=== PATIENT | male | born 1965 | race Two or more races ===

== ENCOUNTER 2025-08-28 17:21 | Inpatient (IN) | payer MEDICARE, OTHER ==
[~2025-08-28] VITALS: Ht 177.8 cm; Wt 77.6 kg
[2025-08-28 18:13] LABS: PLATELET COUNT (AUTO) 358 K/uL (150-450); RED BLOOD CELL COUNT(AUTO) 3.50 MIL/uL (4.5-6.0); RED CELL DISTRIBUTION WIDTH 14.6 % (11.5-15.0); WHITE BLOOD COUNT (AUTO) 7.4 K/uL (4.3-11.0)
[2025-08-28 18:24] LABS: CALCIUM, SERUM 8.8 mg/dL (8.5-10.1); CREATININE 0.6 mg/dL (0.6-1.3); SODIUM SERUM 137 mmol/L (136-145); UREA NITROGEN, BLOOD 28 mg/dL (7-18)
[2025-08-28 18:26] LABS: INR 1.02 (0.91-1.10)
[2025-08-28 18:30] LABS: ASPARTATE AMINOTRANSFERASE 12 U/L (15-37); TOTAL PROTEIN, SERUM 7.5 g/dL (6.4-8.2)
[2025-08-28 18:32] LABS: LACTIC ACID 0.9 mmol/L (0.4-2.0)
[2025-08-28] MEDS ORDERED: IOHEXOL-300 100 ML VIAL IV ONE (18:53)
[2025-08-28] MEDS ORDERED: IV NS 0.9% 250 ML IV ONE (18:53)
[2025-08-28 19:36] LABS: APPEARANCE,URINE CLEAR (CLEAR); BLOOD, URINE Negative Ery/uL (NEGATIVE); LEUKOCYTE ESTERASE ,URINE Negative (NEGATIVE); NITRITE, URINE NEGATIVE (NEGATIVE); UGLUCOSE 500 MG/DL mg/dL (NEGATIVE)
[2025-08-28 19:37] LABS: ADD URINE CULTURE NO; SQUAMOUS EPITHELIAL CELL,UR None Seen /HPF (None Seen)
[2025-08-28] MEDS ORDERED: CEFEPIME 1 GM VIAL ONE (21:08)
[2025-08-28] MEDS: CEFEPIME 1 GM in IV D5W 50 ML IV ONE (21:10)
[2025-08-28] MEDS ORDERED: MAGNESIUM HYDROXIDE 30 ML UDC PO PRN (21:30)
[2025-08-28] MEDS ORDERED: MAG HYDROX/AL HYDROX/SIMETH 30 ML UDC PO PRN (21:30)
[2025-08-28] MEDS ORDERED: DOSING PER PHARMACY-VANCOMYCIN IV XX PRN (21:30)
[2025-08-28] MEDS ORDERED: Z GUARD REMEDY 4 OZ OINT TP PRN (21:30)
[2025-08-28] MEDS ORDERED: ACETAMINOPHEN 325 MG TABLET PO PRN (21:30)
[2025-08-28] MEDS ORDERED: ONDANSETRON HCL/PF 4 MG/2 ML VIAL IVP PRN (21:30)
[2025-08-28] MEDS ORDERED: VANCOMYCIN 1 GM /D5W 250 ML PB IV ONE (21:42)
[2025-08-28] MEDS: VANCOMYCIN 1 GM in IV D5W 250 ML IV ONE (21:50)
[2025-08-28] MEDS ORDERED: POLY17PO4 GT (21:52)
[2025-08-28] MEDS ORDERED: METO5TAB87 GT (21:52)
[2025-08-28] MEDS ORDERED: QUET25TA GT (21:52)
[2025-08-28] MEDS ORDERED: METF-440 GT (21:52)
[2025-08-28] MEDS ORDERED: NICO-627 TP (21:52)
[2025-08-28] MEDS ORDERED: AMIN887L GT (21:52)
[2025-08-28] MEDS ORDERED: SENN-18 GT (21:52)
[2025-08-28] MEDS ORDERED: QUET50TA GT (21:52)
[2025-08-28] MEDS ORDERED: INSU100I26 SQ (21:52)
[2025-08-28] MEDS ORDERED: TRAZ-182 GT (21:52)
[2025-08-28] MEDS ORDERED: LISI2.5T2 GT (21:52)
[2025-08-28] MEDS ORDERED: DEXTROSE 50%-WATER 50 ML DISP.SYRIN IV PRN (22:30)
[2025-08-28] MEDS ORDERED: VANCOMYCIN 500 MG VIAL ONE (23:27)
[2025-08-28] MEDS: VANCOMYCIN 1 GM /D5W 250 ML PB IV ONE (23:41)
[2025-08-28] MEDS: IV D5/ 0.9% NACL 1,000 ML IV SCH (23:42)
[2025-08-28] MEDS: VANCOMYCIN 1.5 GM in IV D5W 500 ML IV ONE (23:43)
[2025-08-29] MEDS: BLOOD SUGAR DIAGNOSTIC 1 EACH STRIP IN SCH (00:04)
[2025-08-29] MEDS: INSULIN REGULAR, HUMAN 100 UNIT/ML 3 ML VIAL SQ PRN (00:04)
[2025-08-29 04:00] VITALS: BP 111/53; TEMP 97.9; O2SAT 98
[2025-08-29 08:00] VITALS: BP 112/50; TEMP 99.3; O2SAT 96
[2025-08-29] MEDS ORDERED: INSU100V42 SQ (08:29)
[2025-08-29] MEDS ORDERED: NICO-676 TD (08:29)
[2025-08-29] MEDS ORDERED: AMIN30LI2 GT (08:29)
[2025-08-29] MEDS ORDERED: GLUC1KIT IJ (08:29)
[2025-08-29] MEDS ORDERED: NUT.237L30 GT (08:29)
[2025-08-29] MEDS: VANCOMYCIN HCL 1.25 GM in IV D5W 250 ML IV SCH (08:46)
[2025-08-29] MEDS: PANTOPRAZOLE 40 MG VIAL IV SCH (08:54)
[2025-08-29] MEDS: CEFEPIME 1 GM in IV D5W 50 ML IV SCH (10:19)
[2025-08-29 11:09] LABS: PLATELET COUNT (AUTO) 326 K/uL (150-450); RED BLOOD CELL COUNT(AUTO) 3.17 MIL/uL (4.5-6.0); RED CELL DISTRIBUTION WIDTH 14.1 % (11.5-15.0); WHITE BLOOD COUNT (AUTO) 6.5 K/uL (4.3-11.0)
[2025-08-29 11:21] LABS: CALCIUM, SERUM 8.5 mg/dL (8.5-10.1); CREATININE 0.7 mg/dL (0.6-1.3); PHOSPHORUS 3.8 mg/dL (2.5-4.9); SODIUM SERUM 137.0 mmol/L (136-145); UREA NITROGEN, BLOOD 19.0 mg/dL (7-18)
[2025-08-29 16:00] VITALS: BP 121/61; TEMP 98.2; O2SAT 95
[2025-08-29 20:00] VITALS: BP 117/56; TEMP 98.4; O2SAT 93
[2025-08-30 08:00] VITALS: BP 121/53; TEMP 98.4; O2SAT 96
[2025-08-30 08:00] LABS: CALCIUM, SERUM 8.2 mg/dL (8.5-10.1); CREATININE 0.7 mg/dL (0.6-1.3); SODIUM SERUM 138.0 mmol/L (136-145); UREA NITROGEN, BLOOD 12.0 mg/dL (7-18)
[2025-08-30] MEDS: VANCOMYCIN HCL 1.25 GM in IV D5W 250 ML IV SCH (12:04)
[2025-08-30 16:00] VITALS: BP 128/67; TEMP 99.3; O2SAT 96
[2025-08-30 20:00] VITALS: BP 113/59; TEMP 99.3; O2SAT 97
[2025-08-31 06:58] LABS: PLATELET COUNT (AUTO) 326 K/uL (150-450); RED BLOOD CELL COUNT(AUTO) 3.19 MIL/uL (4.5-6.0); RED CELL DISTRIBUTION WIDTH 13.9 % (11.5-15.0); WHITE BLOOD COUNT (AUTO) 5.7 K/uL (4.3-11.0)
[2025-08-31 06:59] LABS: CALCIUM, SERUM 8.5 mg/dL (8.5-10.1); CREATININE 0.6 mg/dL (0.6-1.3); SODIUM SERUM 141.0 mmol/L (136-145); UREA NITROGEN, BLOOD 10.0 mg/dL (7-18)
[2025-08-31 08:00] VITALS: BP 156/54; TEMP 97.5; TEMP 98.2; O2SAT 99
[2025-08-31 16:11] VITALS: BP 120/55; TEMP 98.2; O2SAT 98
[2025-08-31 20:00] VITALS: BP 131/53; TEMP 98.1; O2SAT 99
[2025-09-01] MEDS: IV D5/ 0.9% NACL 1,000 ML IV PRN (06:48)
[2025-09-01 08:00] VITALS: BP 132/64; TEMP 98.8; O2SAT 98
[2025-09-01] MEDS ORDERED: DIATR MEGLU/DIATRIZOATE SODIUM 30 ML BOTTLE (GASTROGRAPHIN) ONE (08:22)
[2025-09-01] MEDS ORDERED: LEVO500T90 PO (09:11)
[2025-09-01] MEDS ORDERED: GLUCERNA 1.2 1,000 ML BOTTLE NG PRN (11:30)
== END 2025-09-01 14:26 | DRG 393 ==
LOC: ER 17:23 → MED 21:38
PROVIDERS: ATTEND Internal Medicine
PROC: 0D20XUZ Change Feeding Device in Upper Intestinal Tract, External Approach (ICD-10-PCS; principal; 2025-08-31)
DX: K94.23 Gastrostomy malfunction (principal); J15.69 Pneumonia due to other Gram-negative bacteria; J69.0 Pneumonitis due to inhalation of food and vomit; G93.49 Other encephalopathy; F32.9 Major depressive disorder, single episode, unspecified; E11.9 Type 2 diabetes mellitus without complications; I10 Essential (primary) hypertension; F20.9 Schizophrenia, unspecified; R13.10 Dysphagia, unspecified; Y83.3 Surgical operation with formation of external stoma as the cause of abnormal reaction of the patient, or of later complication, without mention of misadventure at the time of the procedure; Y73.8 Miscellaneous gastroenterology and urology devices associated with adverse incidents, not elsewhere classified; Y92.129 Unspecified place in nursing home as the place of occurrence of the external cause
CPT/HCPCS: 36415; 70450-TC; 71250-TC; 74018; 80048-TC; 80076-TC; 80202-TC; 81001; 82962-TC; 83605-TC; 83690-TC; 83735-TC; 83880; 84100-TC; 84484-TC; 85025-TC; 85730-TC; 87081-TC; A4223; G0378; J0692; J1815; J2470; J3373; J3374; J7040; J7042; J7050; J7060; Q9963; Q9967